=== PATIENT | male | born 1945 | race African-American/Black ===

== ENCOUNTER → 2018-11-16 | Outpatient (REF) | payer MEDICARE ==
[~2018-11-16] MED LIST: ASPIRIN LOW DOS81 M2 PO; LEVOTHYROXIN100 MCG PO; LEVOTHYROXIN112 MC1 PO; LEVOTHYROXIN125 MCG PO; LEVOTHYROXIN25 MC1 PO; LEVOTHYROXIN50 MC1 PO; LISINOP/HCTZ1 TA2 PO; LISINOPRIL10 MG PO; LORTAB5 PO; LOVASTATIN10 MG PO; PERCOCET1 TA4 PO; SYNTHROID100 MCG PO; SYNTHROID125 MCG PO; SYNTHROID150 MCG PO; TENORMIN25 MG PO; VIAGRA100 MG PO
[2018-11-16 12:15] LABS: ALBUMIN 4.2 g/dL (3.2-5.0); ALKALINE PHOSPHATASE 70 u/l (38-126); ANION GAP 14 (6-22 (CALC)); BILIRUBIN, TOTAL 0.4 mg/dL (0.0-1.4); BUN 13 mg/dL (8-23); BUN/CREATININE RATIO 11 (12-20 (CALC)); CALCULATED LDLCHOLESTEROL 84 mg/dL (62-129 (CALC)); CARBON DIOXIDE 29 mmol/l (22-30); CHLORIDE 101 mmol/l (95-108); CHOLESTEROL HDL RATIO 2.7 (<4.4 (CALC)); CREATININE 1.1 mg/dL (0.7-1.3); GFR > 60 ML/MIN (>=60 (CALC)); GFR FOR AFR.AMER. > 60 ML/MIN (>=60 (CALC)); HDL CHOLESTEROL 58 mg/dL (>=40); POTASSIUM 3.9 mmol/l (3.5-5.1); SGOT/AST 18 u/l (19-48); SODIUM 140 mmol/l (137-146); TOTAL CHOLESTEROL 158 mg/dl (0-199); TOTAL TRIGLYCERIDES 80 mg/dl (30-149); VLDL CHOLESTROL 16 mg/dl (0-38 (CALC))
[2018-11-16 12:53] LABS: TSH, 3RD GENERATION 5.34 uIU/mL (0.47 - 4.68)
== END | disposition home or self-care (01) ==
LOC: LAB 10:16
PROVIDERS: ATTEND Nurse Practitioner Family
DX: I10 Essential (primary) hypertension (principal); E78.2 Mixed hyperlipidemia; E03.9 Hypothyroidism, unspecified

== ENCOUNTER 2021-06-08 12:12 | Emergency (ER) | payer MEDICARE ==
[~2021-06-08] VITALS: Ht 170.2 cm; Wt 75.0 kg
[2021-06-08] MEDS ORDERED: PREDNISONE50 MG PO (15:41)
[2021-06-08] MEDS ORDERED: EPIPEN 2-P0.3 MG/0.3 IM (15:41)
[2021-06-08 16:22] VITALS: BP 144/78
== END 2021-06-08 16:22 | disposition home or self-care (01) ==
LOC: ED 12:12
DX: T78.3XXA Angioneurotic edema, initial encounter (principal); T44.5X5A Adverse effect of predominantly beta-adrenoreceptor agonists, initial encounter; I10 Essential (primary) hypertension; Z85.21 Personal history of malignant neoplasm of larynx; Z93.0 Tracheostomy status

== ENCOUNTER 2021-10-26 15:56 | Emergency (ER) | payer OTHER, MEDICARE ==
[~2021-10-26] VITALS: Ht 170.2 cm; Wt 79.5 kg
[~2021-10-26 15:56] MED LIST changes: +EPIPEN 2-P0.3 MG/0.3 IM; +PREDNISONE50 MG PO
[2021-10-26 19:12] VITALS: BP 149/85
== END 2021-10-26 19:12 | disposition home or self-care (01) | DRG 556 ==
LOC: ED 15:56
DX: M25.551 Pain in right hip (principal); M25.511 Pain in right shoulder; M79.631 Pain in right forearm; M54.50 Low back pain, unspecified; I10 Essential (primary) hypertension; E78.5 Hyperlipidemia, unspecified; V49.40XA Driver injured in collision with unspecified motor vehicles in traffic accident, initial encounter; Z85.21 Personal history of malignant neoplasm of larynx